=== PATIENT | female | born 1960 | race Caucasian/White ===

== ENCOUNTER 2016-07-31 02:23 | Emergency (ER) | payer MEDICARE, OTHER ==
[~2016-07-31] VITALS: Ht 162.6 cm; Wt 80.3 kg
[~2016-07-31 02:23] MED LIST: ASPI325T2 PO; BENA10TA2 PO; CLON0.1T PO; CLOP75TA2 PO; ESCI10TA PO; FURO40TA5 PO; LISI40TA4 PO; LORA-258 PO; LOSA1TAB36 PO; METO50TA3 PO; OMEG1CAP55 PO; PROP10TA10 PO; TRAZ-147 PO
[2016-07-31 02:28] VITALS: BP 139/74
== END 2016-07-31 02:49 | disposition home or self-care (01) ==
LOC: ER 02:23
DX: F41.9 Anxiety disorder, unspecified (principal); I10 Essential (primary) hypertension; F17.200 Nicotine dependence, unspecified, uncomplicated; Z86.73 Personal history of transient ischemic attack (TIA), and cerebral infarction without residual deficits; Z79.82 Long term (current) use of aspirin
CPT/HCPCS: 99284; A4606; Z7610

== ENCOUNTER 2016-11-01 02:50 | Inpatient (IN) | payer MEDICARE, OTHER ==
[~2016-11-01] VITALS: Ht 162.6 cm; Wt 78.0 kg
--- NOTE | 2016-11-01 03:20 | NUR ---
PRESENTED TO THE ER WITH A C/O HEADACHE, RT HIP PAIN AND RT MIDDLE FINGER PAIN. PT HAS HX OF TIA WITH RESIDUAL RT SIDED WEAKNESS. PT STATED THAT THE WEAKNESS ON THE RUE IS A LITTLE MORE PRONOUNCED THAT IT HAS BEEN. PT HAS NO FACIAL DROOP, NO SPEECH DEFICITS, NO DRIFT. 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 PT IS AMBULATORY WITH A STEADY GAIT. PT IS AA&O X4. PT IS ON THE MONITOR AND CONTINUOUS PULSE OX.
--- NOTE | 2016-11-01 03:47 | NUR ---
DR. RAMON, NEUROLOGIST IS SPEAKING TO/EVALUATING THE PT.
[2016-11-01 03:53] LABS: BASOPHILS % (AUTO) 0.3 % (0.0-2.0); EOSINOPHILS # (AUTO) 0.3 /CMM (0.0-0.7); EOSINOPHILS % (AUTO) 2.8 % (0.0-6.0); HEMATOCRIT 37 % (33-45); HEMOGLOBIN 12.7 g/dL (11.5-14.8); LYMPHOCYTES # (AUTO) 3.7 /CMM (0.8-4.8); LYMPHOCYTES % (AUTO) 37.2 % (20.0-44.0); MEAN CORPUSCULAR HEMOGLOBIN 31 PG (26.0-33.0); MEAN CORPUSCULAR HGB CONC 34 g/dl (31.0-36.0); MEAN CORPUSCULAR VOLUME 89 fL (82-100); MONOCYTES # (AUTO) 0.5 /CMM (0.1-1.30); NEUTROPHILS # (AUTO) 5.5 /CMM (1.8-8.9); NEUTROPHILS % (AUTO) 54.7 % (43.0-81.0); PLATELET COUNT (AUTO) 275 /CMM (150-450); RDW COEFFICIENT OF VARIATION 13.4 (11.5-15.0); RED BLOOD CELL COUNT(AUTO) 4.13 MIL/uL (4.0-5.2)
--- NOTE | 2016-11-01 03:58 | NUR ---
DR RAMON, NEUROLOGY IS SPEAKING TO DR. HARO. PT IS NOT A CANDIDATE FOR INTERVENTION.
[2016-11-01 04:02] LABS: INR 0.99 (0.87-1.13); PROTHROMBIN TIME 10.6 SECS (9.5-12.7)
[2016-11-01 04:14] LABS: TROPONIN I < 0.017 ng/mL (0.00-0.056)
--- NOTE | 2016-11-01 04:15 | NUR ---
CXR IN PROGRESS AT THE BEDSIDE.
[2016-11-01 04:28] LABS: CALCIUM, SERUM 8.3 mg/dL (8.5-10.1); CARBON DIOXIDE 26 mmol/L (21-32); CHLORIDE 104 mmol/L (98-107); CREATININE 0.7 mg/dL (0.6-1.3); GLUCOSE 111 mg/dL (74-106); POTASSIUM 3.3 mmol/L (3.5-5.1); SODIUM SERUM 141 mmol/L (136-145); UREA NITROGEN, BLOOD 16 mg/dL (7-18)
[2016-11-01 04:31] LABS: ALANINE AMINOTRANSFERASE 34 U/L (12-78); ALBUMIN 3.8 g/dL (3.4-5.0); ALKALINE PHOSPHATASE 67 U/L (46-116); ASPARTATE AMINOTRANSFERASE 17 U/L (15-37); BILIRUBIN,TOTAL 0.3 mg/dL (0.2-1.0)
[2016-11-01] MEDS ORDERED: OLME1TAB34 PO (04:39)
[2016-11-01] MEDS ORDERED: CRESTOR PO (04:39)
[2016-11-01] MEDS ORDERED: PREVACID PO (04:39)
[2016-11-01] MEDS ORDERED: POTA10TA21 PO (04:39)
--- NOTE | 2016-11-01 04:41 | NUR ---
PT'S O2 SATURATION IS 91%ON RA WHEN SLEEPING. PT IS BEING PLACED ON 2L O2 VIA NC. DR. HARO IS AWARE.
--- NOTE | 2016-11-01 04:45 | NUR ---
I REVIEWED PT'S MEDICATION LIST IN THE COMPUTER WITH THE PT. ALL MEDICATIONS HELD ARE MEDICATIONS THAT SHE IS NO LONGER TAKING.
--- NOTE | 2016-11-01 05:00 | NUR ---
REPORT GIVEN TO AZALIA GUERIN
--- NOTE | 2016-11-01 05:05 | NUR ---
RN NOTES ADMITTED A 56 YEARS OLD FEMALE PT FROM ER WITH PRIMARY DIAGNOSIS OF TIA UNDER JEAN-PIERRE PUENTE. PT ALERT AND ORIENTED X4, VERBALIZING TOLERABLE PAIN ON RIGHT LOWER LEG 4/10 AND WEAKNESS ON RIGHT UPPER ARM. DENIES HEADACHE, NAUSEA AND VOMITING. VITAL SIGNS STABLE, AFEBRILE. ATTACHED TO TELE MONITOR WHICH READS SINUS RHYTHM AT 65. ON O2 INHALATION AT 2LPM VIA NC AND TOLERATED WELL. SKIN CLEAR AND INTACT. ABLE TO AMBULATE WITH STEADY GAIT. ALL NEEDS ATTENDED. ALL DUE MEDS GIVEN. ALL ORDERS NOTED AND CARRIED OUT. WILL CONTINUE TO MONITOR PT.
[2016-11-01 05:20] VITALS: BP 116/63
[2016-11-01] MEDS ORDERED: ENOXAPARIN SODIUM 40 MG/0.4 ML DISP.SYRIN SQ SCH (05:30)
[2016-11-01] MEDS ORDERED: MAGNESIUM HYDROXIDE 30 ML UDC PO PRN (05:30)
[2016-11-01] MEDS ORDERED: Z GUARD REMEDY 2 OZ OINT TP PRN (05:30)
[2016-11-01] MEDS ORDERED: MAG HYDROX/AL HYDROX/SIMETH 30 ML UDC PO PRN (05:30)
[2016-11-01] MEDS ORDERED: ONDANSETRON HCL/PF 4 MG/2 ML VIAL IVP PRN (05:30)
[2016-11-01] MEDS ORDERED: MORPHINE SULFATE INJ 2 MG/ML DISP.SYRIN IV PRN (05:30)
[2016-11-01] MEDS ORDERED: HYDROCODONE/APAP 5/325MG 1 EACH TABLET PO PRN (05:30)
[2016-11-01] MEDS ORDERED: ACETAMINOPHEN 325 MG TABLET PO PRN (05:30)
[2016-11-01] MEDS ORDERED: POTASSIUM CHLORIDE 20 MEQ TAB.PRT.SR PO ONE ×2 (05:30→05:46)
[2016-11-01] MEDS ORDERED: ZOLPIDEM TARTRATE 5 MG TABLET PO PRN (05:30)
[2016-11-01 05:38] LABS: MAGNESIUM 1.7 mg/dL (1.8-2.4); PHOSPHORUS 4.1 mg/dL (2.5-4.9)
[2016-11-01] MEDS ORDERED: ENOXAPARIN SODIUM 40 MG/0.4 ML DISP.SYRIN SQ ONE (05:46)
[2016-11-01 05:48] LABS: THYROID STIMULATING HORMONE 4.263 uIU/mL (0.358-3.74)
[2016-11-01 06:24] VITALS: BP 116/63
[2016-11-01 07:18] VITALS: BP 112/58
[2016-11-01] MEDS ORDERED: PANTOPRAZOLE 40 MG TABLET.DR PO SCH (07:30)
--- NOTE | 2016-11-01 07:35 | NUR ---
RN NOTES PT ASLEEP, BREATHING REGULAR AND UNLABORED, NO SIGNS OF DISTRESS AND DISCOMFORT NOTED. VITAL SIGNS STABLE. NO COMPLAIN OF PAIN, NO EPISODE OF NAUSEA AND VOMITING. TELE MONITOR READS SINUS RHYTHM AT 63. ALL NEEDS ATTENDED. PT FOR PT BOB AND FERCHO CONSULT WITH DR KIM. ENDORSED TO TACHO VIEYRA FOR CONTINUITY OF CARE.
--- NOTE | 2016-11-01 07:56 | NUR ---
ACID LOADER NOTES RECEIVED PATIENT IN BED, NO APPARENT DISTRESS NOTED, DENIES PAIN DENIES SOB. ON TELE MONITORING SR 66, LAC IV PATENT, NO S/S OF INFILTRATION NOTED. ALL NEEDS MET, CALL LIGHT WITHIN REACH.
[2016-11-01 08:00] VITALS: BP 112/58
[2016-11-01] MEDS ORDERED: ASPIRIN 325 MG TABLET PO SCH (09:00)
[2016-11-01 11:27] LABS: BASOPHILS % (AUTO) 0.5 % (0.0-2.0); EOSINOPHILS # (AUTO) 0.2 /CMM (0.0-0.7); EOSINOPHILS % (AUTO) 2.5 % (0.0-6.0); HEMATOCRIT 36 % (33-45); HEMOGLOBIN 12.4 g/dL (11.5-14.8); LYMPHOCYTES # (AUTO) 2.3 /CMM (0.8-4.8); LYMPHOCYTES % (AUTO) 25.2 % (20.0-44.0); MEAN CORPUSCULAR HEMOGLOBIN 31 PG (26.0-33.0); MEAN CORPUSCULAR HGB CONC 35 g/dl (31.0-36.0); MEAN CORPUSCULAR VOLUME 89 fL (82-100); MONOCYTES # (AUTO) 0.4 /CMM (0.1-1.30); MONOCYTES % (AUTO) 4.4 % (2.0-12.0); NEUTROPHILS # (AUTO) 6.1 /CMM (1.8-8.9); NEUTROPHILS % (AUTO) 67.4 % (43.0-81.0); PLATELET COUNT (AUTO) 255 /CMM (150-450); RDW COEFFICIENT OF VARIATION 13.3 (11.5-15.0); RED BLOOD CELL COUNT(AUTO) 4.02 MIL/uL (4.0-5.2)
[2016-11-01 11:40] LABS: CALCIUM, SERUM 8.6 mg/dL (8.5-10.1); CREATININE 0.7 mg/dL (0.6-1.3); POTASSIUM 3.9 mmol/L (3.5-5.1)
[2016-11-01 11:49] LABS: THYROID STIMULATING HORMONE 2.126 uIU/mL (0.358-3.74)
[2016-11-01 11:50] LABS: ALBUMIN 3.6 g/dL (3.4-5.0); BILIRUBIN,TOTAL 0.3 mg/dL (0.2-1.0); TOTAL PROTEIN, SERUM 6.7 g/dL (6.4-8.2)
[2016-11-01] MEDS: BLOOD SUGAR DIAGNOSTIC 1 EACH STRIP IN SCH ×2 (12:00→17:47)
[2016-11-01] MEDS ORDERED: IV SET PRIMARY PUMP SET 1 EA INFUS.SET MC ONE (12:27)
[2016-11-01] MEDS: Magnesium 1GM/D5W 100ML PREMIX 100 ML IV SCH ×2 (12:48→13:44)
--- NOTE | 2016-11-01 15:40 | NUR ---
Social service consult requested by ALEX Summers for stroke. Pt. is a 56 year old female who was admitted to [facility] for TIA. SW met with pt. bedside. Pt. is alert and oriented and resides with her mother at [address] [place] [address], [address] [place] [address]. Pt. has a prior history of TIA three years ago. Pt. states she has adequate support at home at this time. Pt. states she was ambulatory prior to admission and might need rehab. SW will refer pt. to case management to further assess for skilled needs.
[2016-11-01 16:00] VITALS: BP 114/60
--- NOTE | 2016-11-01 17:04 | NUR ---
corn miller notes spoke to dr taylor regarding results of carotid duplex, per dr taylor he will evaluate the results for possible dc.
--- NOTE | 2016-11-01 19:00 | NUR ---
RN MS NOTES. PATIENT LEFT IN STABLE CONDITION, VIA PRIVATE CAR. NO APPARENT DISTRESS NOTED, DENIES PAIN, DENIES SOB. STROKE EDUCTION PROVIDED, EDUCATED PATIENT ON SMOKING CESSATION. IV LINE DISCONTINUED, NO S/S OF INFILTRATION NOTED. SKIN ASSESSMENT DONE, SKIN IS CLEAR AND INTACT. PATIENT IN A HURRY, DID NOT WANT TO WAIT FOR EVERYTHING TO BE FINALIZED.DISCHARGE INSTRUCTIONS PROVIDED, PATIENT STATED UNDERSTANDING. PRESCRIPTION GIVEN TO PATIENT, EDUCATION PROVIDED. EXIT CARE UTILIZED TO PROVIDE EDUCATIONAL MATERIAL. PATIENT SATED SHE WOULD FOLLOW UP WITH HER PRIMARY CARE DOCTOR REGARDING MEDICATIONS. BELONGINGS LIST SIGNED, ALL BELONGINGS ACCOUNTED FOR.
[2016-11-01] MEDS ORDERED: ATORVASTATIN 10 MG TABLET PO SCH (22:00)
[2016-11-02] MEDS ORDERED: ENOXAPARIN SODIUM 40 MG/0.4 ML DISP.SYRIN SQ SCH (09:00)
== END 2016-11-01 19:00 | disposition home or self-care (01) | DRG 69 ==
LOC: ER 02:56 → TELE 04:24 → MED 10:12
PROVIDERS: ADMIT Nurse Practitioner Acute Care; ATTEND Nurse Practitioner Acute Care
DX: G45.9 Transient cerebral ischemic attack, unspecified (principal); I10 Essential (primary) hypertension; E87.6 Hypokalemia; E78.5 Hyperlipidemia, unspecified; F17.210 Nicotine dependence, cigarettes, uncomplicated; G43.109 Migraine with aura, not intractable, without status migrainosus; Z82.3 Family history of stroke; Z86.73 Personal history of transient ischemic attack (TIA), and cerebral infarction without residual deficits
CPT/HCPCS: 36415; 70450-TC; 70551-TC; 71010-TC; 80048-TC; 80053-TC; 80061-TC; 80076-TC; 82962-TC; 83735-TC; 83880; 84100-TC; 84439-TC; 84443-TC; 84484-TC; 85025-TC; 85652-TC; 85730-TC; 87081-TC; 93880-TC; 97001-TC; A4606; J1650; J3475; Z7610

== ENCOUNTER 2016-12-08 00:22 | Emergency (ER) | payer MEDICARE, OTHER ==
[~2016-12-08] VITALS: Ht 157.5 cm; Wt 59.0 kg
[~2016-12-08 00:22] MED LIST changes: +CRESTOR PO; +OLME1TAB34 PO; +POTA10TA21 PO; +PREVACID PO
--- NOTE | 2016-12-08 00:40 | NUR ---
PT A/OX4 BREATHING EFFORTLESSLY ON ROOM AIR, PT STATES SHE HAS BEEN HAVING SOB X 2 HOURS, PT IS SPEAKING IN FULL SENTANCES IN NO APPARENT DISTRESS, PT HAS NO JVD OR ACCESSORY MUSCLE USE, PT ON MONTIOR IN MD MICHAEL MADE AWARE WILL CONTINUE TO MONITOR.
[2016-12-08 00:57] LABS: BASOPHILS # (AUTO) 0.1 /CMM (0.0-0.2); BASOPHILS % (AUTO) 0.6 % (0.0-2.0); EOSINOPHILS # (AUTO) 0.3 /CMM (0.0-0.7); EOSINOPHILS % (AUTO) 2.6 % (0.0-6.0); HEMATOCRIT 39 % (33-45); HEMOGLOBIN 13.4 g/dL (11.5-14.8); LYMPHOCYTES # (AUTO) 3.9 /CMM (0.8-4.8); LYMPHOCYTES % (AUTO) 37.2 % (20.0-44.0); MEAN CORPUSCULAR HEMOGLOBIN 30 PG (26.0-33.0); MEAN CORPUSCULAR HGB CONC 34 g/dl (31.0-36.0); MEAN CORPUSCULAR VOLUME 88 fL (82-100); MONOCYTES # (AUTO) 0.6 /CMM (0.1-1.30); MONOCYTES % (AUTO) 5.9 % (2.0-12.0); NEUTROPHILS # (AUTO) 5.6 /CMM (1.8-8.9); NEUTROPHILS % (AUTO) 53.7 % (43.0-81.0); PLATELET COUNT (AUTO) 307 /CMM (150-450); RDW COEFFICIENT OF VARIATION 13.1 (11.5-15.0); RED BLOOD CELL COUNT(AUTO) 4.41 MIL/uL (4.0-5.2); WHITE BLOOD COUNT (AUTO) 10.5 K/uL (4.3-11.0)
[2016-12-08 01:12] LABS: CALCIUM, SERUM 9.1 mg/dL (8.5-10.1); CARBON DIOXIDE 30 mmol/L (21-32); CHLORIDE 102 mmol/L (98-107); CREATININE 0.9 mg/dL (0.6-1.3); GLUCOSE 116 mg/dL (74-106); POTASSIUM 3.6 mmol/L (3.5-5.1); SODIUM SERUM 141 mmol/L (136-145); UREA NITROGEN, BLOOD 14 mg/dL (7-18)
[2016-12-08 01:15] LABS: TROPONIN I < 0.017 ng/mL (0.00-0.056)
[2016-12-08 03:32] VITALS: BP 127/69
== END 2016-12-08 03:33 | disposition home or self-care (01) ==
LOC: ER 00:29
DX: R53.1 Weakness (principal); F41.9 Anxiety disorder, unspecified; R11.2 Nausea with vomiting, unspecified; F17.200 Nicotine dependence, unspecified, uncomplicated; Z86.73 Personal history of transient ischemic attack (TIA), and cerebral infarction without residual deficits; Z79.82 Long term (current) use of aspirin
CPT/HCPCS: 36415; 71010; 80048; 84484; 85025; 93005; 99285; A4606; Z7610

== ENCOUNTER 2016-12-14 03:35 | Emergency (ER) | payer MEDICARE, OTHER ==
--- NOTE | 2016-12-14 03:40 | NUR ---
CALLED PT NAME X 3 IN WR. NO RESPONSE.
--- NOTE | 2016-12-14 03:53 | NUR ---
CALLED PT NAME X 3 IN WR. NO RESPONSE.
--- NOTE | 2016-12-14 04:00 | NUR ---
CALLED PT NAME X 3 IN WR. NO RESPONSE.
--- NOTE | 2016-12-14 04:14 | NUR ---
CALLED PT NAME X 3 IN WR. NO RESPONSE.
--- NOTE | 2016-12-14 04:29 | NUR ---
PER ADMITTING PT LEFT.
== END 2016-12-14 04:45 | disposition left against medical advice (07) ==
LOC: ER 03:36
DX: Z53.21 Procedure and treatment not carried out due to patient leaving prior to being seen by health care provider (principal)

== ENCOUNTER 2016-12-23 03:43 | Emergency (ER) | payer MEDICARE, OTHER ==
[~2016-12-23] VITALS: Ht 157.5 cm; Wt 59.0 kg
--- NOTE | 2016-12-23 03:45 | NUR ---
TO BED 10 A 56 YO FEMALE PATIENT WALKED INTO ED WITH RA39. W C/O ANXIETY. PER EMS, PATIENT WAS JUST RECENTLY DIAGNOSED WITH BREAST CA. PATIENT IS AAOX4, AMBULATORY WITH STEADY GAIT. VSS. NONDIAPHORETIC. BREATHING EVEN AND UNLABORED. COMFORT MEASURES RENDERED. RELAXATION MEASURES OBSERVED. ENCOURAGED DEEP BREATHING EXERCISES.
--- NOTE | 2016-12-23 05:00 | NUR ---
PATIENT REPORTED TO BED FEELING BETTER AND WANTS TO GO HOME.
[2016-12-23 05:16] VITALS: BP 135/76
--- NOTE | 2016-12-23 05:16 | NUR ---
Patient discharged to home in stable condition. Written and verbal after care instructions given. Patient verbalizes understanding of instruction. Patient is ambulatory with steady gait, no further complaints.
== END 2016-12-23 05:17 | disposition home or self-care (01) ==
LOC: ER 03:44
DX: F41.9 Anxiety disorder, unspecified (principal); I10 Essential (primary) hypertension; F17.200 Nicotine dependence, unspecified, uncomplicated; Z79.82 Long term (current) use of aspirin; Z86.73 Personal history of transient ischemic attack (TIA), and cerebral infarction without residual deficits
CPT/HCPCS: A4606; Z7610

== ENCOUNTER 2017-02-01 20:50 | Emergency (ER) | payer MEDICARE, OTHER ==
[~2017-02-01] VITALS: Ht 160 cm; Wt 59.0 kg
[2017-02-01 20:55] VITALS: BP 153/100
--- NOTE | 2017-02-01 21:48 | NUR ---
PT CALLED IN AND PT STATES SHE WANTS TO GO TO ANOTHER HOSPITAL PT WALKED OUT WITH A STEADY GAIT
== END 2017-02-01 21:49 | disposition left against medical advice (07) ==
LOC: ER 20:58
DX: Z53.21 Procedure and treatment not carried out due to patient leaving prior to being seen by health care provider (principal)
CPT/HCPCS: A4606; Z7610

== ENCOUNTER 2017-04-16 00:16 | Emergency (ER) | payer MEDICARE, OTHER ==
[~2017-04-16] VITALS: Ht 157.5 cm; Wt 63.5 kg
[2017-04-16 00:16] VITALS: BP 136/76
[~2017-04-16 00:16] MED LIST changes: +ASPI-992 PO; -ASPI325T2 PO; +CLOP75TA15 PO; -CLOP75TA2 PO; +METO50TA16 PO; -METO50TA3 PO
== END 2017-04-16 04:34 | disposition left against medical advice (07) ==
LOC: ER 00:20
DX: Z53.21 Procedure and treatment not carried out due to patient leaving prior to being seen by health care provider (principal)
CPT/HCPCS: A4606; Z7610

== ENCOUNTER 2017-05-30 23:52 | Emergency (ER) | payer MEDICARE, OTHER ==
[~2017-05-30] VITALS: Ht 165.1 cm; Wt 68.0 kg
[2017-05-31 00:02] VITALS: BP 160/79
== END 2017-05-31 01:56 | disposition left against medical advice (07) ==
LOC: ER 23:58
DX: Z53.21 Procedure and treatment not carried out due to patient leaving prior to being seen by health care provider (principal)
CPT/HCPCS: A4606; Z7610

== ENCOUNTER 2017-07-04 01:02 | Emergency (ER) | payer MEDICARE, OTHER ==
[~2017-07-04] VITALS: Ht 162.6 cm; Wt 81.2 kg
--- NOTE | 2017-07-04 01:20 | NUR ---
PT AMBULATORY TO ER BED 12. PT BIB SELF C/O "LIVER PAIN X 30 MIN". PT PLACED IN GOWN AND ON TIN PLATER. VSS/RESP EVEN UNLABORED/NAD NOTED/SKIN WARM AND DRY/DENIES N-V-D/AOX4. AWAITING MD ROJAS.
--- NOTE | 2017-07-04 01:25 | NUR ---
AT BEDSIDE FOR EVAL.
--- NOTE | 2017-07-04 01:35 | NUR ---
EMT AT BEDSIDE FOR EKG.
--- NOTE | 2017-07-04 02:26 | NUR ---
Patient discharged to home in stable condition. Written and verbal after care instructions given. Patient verbalizes understanding of instruction. Patient ambulatory with a steady gait.
[2017-07-04 02:29] VITALS: BP 153/87
== END 2017-07-04 02:30 | disposition home or self-care (01) ==
LOC: ER 01:03
DX: F41.9 Anxiety disorder, unspecified (principal); F17.200 Nicotine dependence, unspecified, uncomplicated; I10 Essential (primary) hypertension; Z79.82 Long term (current) use of aspirin; Z86.73 Personal history of transient ischemic attack (TIA), and cerebral infarction without residual deficits
CPT/HCPCS: A4606; Z7610

== ENCOUNTER 2018-06-11 00:08 | Emergency (ER) | payer MEDICARE, OTHER ==
[~2018-06-11] VITALS: Ht 167.6 cm; Wt 85.3 kg
[~2018-06-11 00:08] MED LIST changes: -BENA10TA2 PO; +BENA10TA9 PO; -TRAZ-147 PO; +TRAZ-214 PO
--- NOTE | 2018-06-11 00:10 | NUR ---
Pt came to emergency dept. complaining of L side back pain that radiates to L chest. Pt AXO4. Pt ambulated to bed 5. Respirations even and unlabored. Pt put on the monitor and pulse ox. Pending eval from ER .
[2018-06-11 00:30] LABS: BASOPHILS # (AUTO) 0.1 /CMM (0.0-0.2); BASOPHILS % (AUTO) 0.9 % (0.0-2.0); EOSINOPHILS % (AUTO) 2.2 % (0.0-6.0); HEMATOCRIT 41 % (33-45); HEMOGLOBIN 14.4 g/dL (11.5-14.8); LYMPHOCYTES # (AUTO) 3.5 /CMM (0.8-4.8); LYMPHOCYTES % (AUTO) 35.3 % (20.0-44.0); MEAN CORPUSCULAR HGB CONC 35 g/dl (31.0-36.0); MEAN CORPUSCULAR VOLUME 90 fL (82-100); MONOCYTES # (AUTO) 0.6 /CMM (0.1-1.30); MONOCYTES % (AUTO) 5.7 % (2.0-12.0); NEUTROPHILS # (AUTO) 5.6 /CMM (1.8-8.9); NEUTROPHILS % (AUTO) 55.9 % (43.0-81.0); PLATELET COUNT (AUTO) 307 /CMM (150-450); RED BLOOD CELL COUNT(AUTO) 4.59 MIL/uL (4.0-5.2)
[2018-06-11] MEDS: IBUPROFEN 400 MG TABLET PO ONE (00:30)
[2018-06-11 00:39] LABS: CREATININE 0.6 mg/dL (0.6-1.3); POTASSIUM 3.3 mmol/L (3.5-5.1)
[2018-06-11] MEDS: ASPIRIN 325 MG TABLET PO ONE (01:43)
--- NOTE | 2018-06-11 01:45 | NUR ---
Patient does not wish to proceed with medical care recommended by Dr. German. Patient given information related to possible complications, up to and including , which could occur as a result of leaving the hospital at this time. Patient verbalizes understanding of risks involved due to leaving against medical advice. Patient has signed AMA form.
[2018-06-11 01:58] VITALS: BP 154/85
== END 2018-06-11 01:58 | disposition left against medical advice (07) ==
LOC: ER 00:11
DX: I21.4 Non-ST elevation (NSTEMI) myocardial infarction (principal); F41.9 Anxiety disorder, unspecified; I10 Essential (primary) hypertension; F17.200 Nicotine dependence, unspecified, uncomplicated; Z98.890 Other specified postprocedural states; Z86.73 Personal history of transient ischemic attack (TIA), and cerebral infarction without residual deficits; Z79.82 Long term (current) use of aspirin
CPT/HCPCS: 36415; 71045-TC; 80048-TC; 84484-TC; 85025-TC; 85730-TC

== ENCOUNTER 2019-04-08 21:15 | Emergency (ER) | payer MEDICARE, OTHER ==
[~2019-04-08] VITALS: Ht 162.6 cm; Wt 81.6 kg
[~2019-04-08 21:15] MED LIST changes: +BENA10TA11 PO; -BENA10TA9 PO
[2019-04-08 21:21] VITALS: BP 195/100
--- NOTE | 2019-04-08 21:35 | NUR ---
HASEEB FROM HOME TO ER BED 9. AAOX4. VERY ANXIOUS AND CRYING. C/O DIZZYNESS, BILAT HAND NUMBNESS AND MID STERNAL CHEST PAIN NON RADIATING 4/10 DISCRIBED PRESSURED AND VERBLAIZED THAT ITS FELLS BETTER COMPARED TO EARLIER. PT REPORTS THAT SHE HAS BEEN HAVING A LOT OF FAMILY STRESS. DURING ASSESSMENT, WAS GUIDED W/ BREATHING EXERCISE WHICH HELPED WITH PT'S ANXIETY. AWAITING MD FOR EVAL.
--- NOTE | 2019-04-08 21:54 | NUR ---
PT VERBALIZED THAT SHE WANTS TO LEAVE AND DOES NOPT WANT TO BE SEEN BY AN MD. MD MADE AWARE. PT WAS ASKED TO WAIT UNTIL SEEN
--- NOTE | 2019-04-08 22:31 | NUR ---
PT ELOPED W/O BEING SEEN BY .
== END 2019-04-08 22:35 | disposition left against medical advice (07) ==
LOC: ER 21:21
DX: R42 Dizziness and giddiness (principal); Z53.21 Procedure and treatment not carried out due to patient leaving prior to being seen by health care provider

== ENCOUNTER 2024-12-09 00:40 | Emergency (ER) | payer MEDICARE, OTHER ==
[~2024-12-09] VITALS: Ht 160 cm; Wt 80.3 kg
[~2024-12-09 00:40] MED LIST changes: -BENA10TA11 PO; +BENA10TA74 PO; +LISI40TA13 PO; -LISI40TA4 PO; -TRAZ-214 PO; +TRAZ-257 PO
[2024-12-09 00:46] VITALS: BP 165/81; TEMP 98.2; O2SAT 95
== END 2024-12-09 01:23 | disposition home or self-care (01) ==
LOC: ER 00:42
DX: S81.832A Puncture wound without foreign body, left lower leg, initial encounter (principal); I10 Essential (primary) hypertension; R73.03 Prediabetes; F17.200 Nicotine dependence, unspecified, uncomplicated; F41.9 Anxiety disorder, unspecified; Z79.02 Long term (current) use of antithrombotics/antiplatelets; Z79.899 Other long term (current) drug therapy; Z60.2 Problems related to living alone; Z86.73 Personal history of transient ischemic attack (TIA), and cerebral infarction without residual deficits; W57.XXXA Bitten or stung by nonvenomous insect and other nonvenomous arthropods, initial encounter; Y93.89 Activity, other specified; Y92.89 Other specified places as the place of occurrence of the external cause; Y99.8 Other external cause status